=== PATIENT | female | born 1965 | race Caucasian/White ===

== ENCOUNTER 2019-11-26 14:59 | Emergency (ER) | payer BC ==
[~2019-11-26] VITALS: Ht 170.2 cm; Wt 68.0 kg
[2019-11-26 15:05] VITALS: BP 124/103
--- NOTE | 2019-11-27 07:32 | EKG ---
[facility] [place] [address] ELECTROCARDIOGRAM REPORT Name: GRETCHEN MOSES Room #: DEP [facility]#: [id number] Admission: 11/26/19 Attend Phys: Discharge: 11/26/19 Date of : 61 Report #: [id number] THIS REPORT FOR: cc: MARIELY - Ksenia family physician/PCP MARIELY - Ksenia family physician/PCP Paul Bland MD [facility] ~ THIS REPORT FOR: //name// [facility] ED Test Date: 2019-11-26 Test Time: 16:13:07 Pat Name: GRETCHEN MOSES Department: Room: Gender: F [employer] Operator: [facility] : 1965 Requested By: Luis Dhillon Order Number: [id number] MD: Paul Bland Measurements Intervals [place] Rate: 95 P: 31 OK: 146 QRS: -7 QRSD: 86 T: 37 QT: 361 QTc: 454 Interpretive Statements Sinus rhythm Probable left atrial enlargement No previous ECG available for comparison Electronically Signed On 11-27-2019 7:32:07 CDT by Paul Bland [email or web address] <ELECTRONICALLY SIGNED> By: Paul Bland MD, FACC 11/27/19 0732 12 12 Paul Bland MD, FACC /EPI
== END 2019-11-26 17:06 | disposition home or self-care (01) ==
LOC: ER 14:59
DX: S16.1XXA Strain of muscle, fascia and tendon at neck level, initial encounter (principal); S09.90XA Unspecified injury of head, initial encounter; W19.XXXA Unspecified fall, initial encounter; Y93.K1 Activity, walking an animal; Y92.89 Other specified places as the place of occurrence of the external cause; Y99.8 Other external cause status